=== PATIENT | female | born 1960 | race Caucasian/White ===

== ENCOUNTER 2017-12-20 22:47 | Emergency (ER) | payer OTHER ==
[~2017-12-20] VITALS: Ht 160 cm; Wt 59.0 kg
[~2017-12-20 22:47] MED LIST: ALBIPROI INH; ALBU.083IS; ALBU.083IS IH; ALBU3IS INH; ALBU90OI; ALBU90OI INH; ALBU90OI6 INH; ALBUIS; ALBUIS IH; AMOCLA500; ASPI81CH PO; ATOR10 PO; AZIT250 PO; BENZ100A PO; BUDE32NIS; CETI10; DIPH50 PO; DOXY100 PO; FLUSAL2505; FLUSAL2505 IH; FLUSAL5005 IH; FLUSAL5005 INH; GUAI600T33 PO; HYDACE5; HYDACE5 PO; HYDGUAL120 PO; IBUP200 PO; IBUP800 PO; IPRAIS; LEVFLO500 PO; LEVO750 PO; LORA10ER; Lisinopril2.5 MG PO; METF500 PO; METO25 PO; MONT4 PO; MULVITMIND PO; NICO14TP TOP; NICO21TP TD; NICO21TP TOP; OTC ALLERGY MED; OXYACE5T PO; OXYB5; OXYB5 PO; Omeprazole20 M1 PO; PRED10 PO; PRED20; PRED20 PO; PROM25 PO; Prednisone20 MG PO; Protonix40 MG PO; ROFL500T PO; SULTRIDS PO; SYMBICORT INH; THEO300ERA; TIOT18; TIOT18 IH; TIOT18 INH; TOLT2ER PO; TOLT4; TOLT4 PO; Zithromax250 MG PO; [UNRECOGNIZED DRUG - OTHER] PO
[2017-12-20 23:38] LABS: BASOPHILS ABSOLUTE AUTO 0.04 K/mm3 (0.00-0.23); BASOPHILS PERCENT AUTO 0 % (0-2); EOSINOPHILS ABSOLUTE AUTO 0.22 K/mm3 (0.00-0.68); EOSINOPHILS PERCENT AUTO 2 % (0-6); Hematocrit 36.1 % (33.0-51.0); Hemoglobin 11.9 g/dL (11.5-16.0); IMMATURE GRAN ABSOLUTE AUTO 0.06 K/mm3 (0.00-0.10); IMMATURE GRAN PERCENT AUTO 0 % (0-1); LYMPHOCYTES PERCENT AUTO 13 % (21-46); MONOCYTES ABSOLUTE AUTO 0.88 K/mm3 (0.16-1.47); MONOCYTES PERCENT AUTO 6 % (4-13); Mean Corpuscular HGB 28.6 pg (26.0-34.0); Mean Corpuscular Volume 87 fL (80-100); Mean Platelet Volume 10.7 fL (9.1-12.4); NEUTROPHILS ABSOLUTE AUTO 11.94 K/mm3 (1.96-9.15); NEUTROPHILS PERCENT AUTO 79 % (41-73); Platelet Count 234 K/mm3 (150-400); RDW Coefficient Variation 14.1 % (11.7-14.2); Red Blood Cell Count 4.16 M/mm3 (3.80-5.20); White Blood Cell Count 15.14 K/mm3 (4.00-11.30)
[2017-12-20 23:53] LABS: Alanine Aminotransfer (ALT/SGP 19 U/L (12-78); Albumin, Blood 3.1 g/dL (3.4-5.0); Albumin/Globulin Ratio 0.8 (0.8-1.8); Alk Phos 80 U/L (50-136); Anion Gap 10 mmol/L (6-16); Aspartate Aminotrans (AST/SGOT 15 U/L (12-37); Bilirubin, Total 0.3 mg/dL (0.1-1.0); Blood Urea Nitrogen 12 mg/dL (8-24); Bun/Creatinine Ratio 15.9 (12.0-20.0); CO2, Blood 20 mmol/L (21-32); Calcium, Blood 8.1 mg/dL (8.5-10.1); Chloride, Blood 107 mmol/L (98-108); Creatinine, Blood 0.75 mg/dL (0.40-1.00); Globulin, Blood 3.7 g/dL (2.2-4.0); Glomerular Filtration Rate >60 (60-); Glucose, Blood 151 mg/dL (70-99); Potassium, Blood 3.4 mmol/L (3.5-5.5); Sodium, Blood 137 mmol/L (136-145); Total Protein, Blood 6.8 g/dL (6.4-8.2); Troponin I <0.015 ng/mL (0.000-0.040)
[2017-12-20 23:56] LABS: Influenza A Negative (NEGATIVE); Influenza B Negative (NEGATIVE)
[2017-12-21 00:45] LABS: PCO2 Arterial 35.6 mmHg (35-45); PO2 Arterial 71.7 mmHg (80-100); pH Blood Arterial 7.44 (7.35-7.45)
== END 2017-12-21 02:47 | disposition home or self-care (01) ==
LOC: ER 22:47
PROVIDERS: Emergency Medicine
DX: R07.9 Chest pain, unspecified (principal); Z88.8 Allergy status to other drugs, medicaments and biological substances; Z91.018 Allergy to other foods; Z79.899 Other long term (current) drug therapy; Z79.82 Long term (current) use of aspirin; Z79.84 Long term (current) use of oral hypoglycemic drugs; J44.9 Chronic obstructive pulmonary disease, unspecified; E11.9 Type 2 diabetes mellitus without complications; F17.210 Nicotine dependence, cigarettes, uncomplicated
CPT/HCPCS: 36600; 71046; 80053; 82803; 83880; 84484; 85025; 87804; 93005; 93010; 99284

== ENCOUNTER → 2018-02-03 | Outpatient (CLI) | payer OTHER ==
[2018-02-03 12:55] LABS: BASOPHILS ABSOLUTE AUTO 0.08 K/mm3 (0.00-0.23); BASOPHILS PERCENT AUTO 1 % (0-2); EOSINOPHILS PERCENT AUTO 4 % (0-6); Hematocrit 43.5 % (33.0-51.0); Hemoglobin 14.7 g/dL (11.5-16.0); IMMATURE GRAN ABSOLUTE AUTO 0.01 K/mm3 (0.00-0.10); IMMATURE GRAN PERCENT AUTO 0 % (0-1); LYMPHOCYTES ABSOLUTE AUTO 1.95 K/mm3 (0.84-5.20); LYMPHOCYTES PERCENT AUTO 23 % (21-46); MONOCYTES ABSOLUTE AUTO 0.47 K/mm3 (0.16-1.47); MONOCYTES PERCENT AUTO 6 % (4-13); Mean Corpuscular HGB 29.1 pg (26.0-34.0); Mean Corpuscular HGB Conc 33.8 g/dL (31.5-36.5); Mean Corpuscular Volume 86 fL (80-100); Mean Platelet Volume 10.4 fL (9.1-12.4); NEUTROPHILS PERCENT AUTO 67 % (41-73); Platelet Count 287 K/mm3 (150-400); Red Blood Cell Count 5.06 M/mm3 (3.80-5.20); White Blood Cell Count 8.61 K/mm3 (4.00-11.30)
[2018-02-03 13:09] LABS: Alanine Aminotransfer (ALT/SGP 22 U/L (12-78); Albumin, Blood 3.9 g/dL (3.4-5.0); Albumin/Globulin Ratio 1.1 (0.8-1.8); Alk Phos 79 U/L (40-126); Anion Gap 9 mmol/L (6-16); Aspartate Aminotrans (AST/SGOT 16 U/L (12-37); Bilirubin, Total 0.3 mg/dL (0.1-1.0); Blood Urea Nitrogen 9 mg/dL (8-24); Bun/Creatinine Ratio 11.5 (12.0-20.0); CO2, Blood 28 mmol/L (21-32); Chloride, Blood 105 mmol/L (98-108); Creatinine, Blood 0.78 mg/dL (0.40-1.00); Globulin, Blood 3.6 g/dL (2.2-4.0); Glomerular Filtration Rate >60 (60-); Glucose, Blood 101 mg/dL (70-99); Potassium, Blood 4.5 mmol/L (3.5-5.5); Sodium, Blood 142 mmol/L (136-145); Total Protein, Blood 7.5 g/dL (6.4-8.2)
== END ==
LOC: LAB EV 12:52 → LAB SHORT 12:52
PROVIDERS: Physician Assistant
DX: R06.00 Dyspnea, unspecified (principal)
CPT/HCPCS: 80053; 83880; 85025

== ENCOUNTER 2018-02-26 22:18 | Inpatient (IN) | payer OTHER ==
[~2018-02-26] VITALS: Ht 162.6 cm; Wt 62.8 kg
[2018-02-26 22:40] LABS: BASOPHILS ABSOLUTE AUTO 0.08 K/mm3 (0.00-0.23); BASOPHILS PERCENT AUTO 1 % (0-2); EOSINOPHILS ABSOLUTE AUTO 0.91 K/mm3 (0.00-0.68); EOSINOPHILS PERCENT AUTO 8 % (0-6); Hemoglobin 14.6 g/dL (11.5-16.0); IMMATURE GRAN ABSOLUTE AUTO 0.02 K/mm3 (0.00-0.10); IMMATURE GRAN PERCENT AUTO 0 % (0-1); LYMPHOCYTES ABSOLUTE AUTO 3.73 K/mm3 (0.84-5.20); LYMPHOCYTES PERCENT AUTO 34 % (21-46); MONOCYTES ABSOLUTE AUTO 0.78 K/mm3 (0.16-1.47); MONOCYTES PERCENT AUTO 7 % (4-13); Mean Corpuscular HGB 28.2 pg (26.0-34.0); Mean Corpuscular HGB Conc 32.4 g/dL (31.5-36.5); Mean Corpuscular Volume 87 fL (80-100); Mean Platelet Volume 10.8 fL (9.1-12.4); NEUTROPHILS ABSOLUTE AUTO 5.57 K/mm3 (1.96-9.15); NEUTROPHILS PERCENT AUTO 50 % (41-73); Platelet Count 288 K/mm3 (150-400); RDW Coefficient Variation 14.4 % (11.7-14.2); Red Blood Cell Count 5.17 M/mm3 (3.80-5.20); White Blood Cell Count 11.09 K/mm3 (4.00-11.30)
[2018-02-26] MEDS ORDERED: MONT10T PO (22:43)
[2018-02-26 22:54] LABS: Alanine Aminotransfer (ALT/SGP 21 U/L (12-78); Albumin, Blood 3.7 g/dL (3.4-5.0); Albumin/Globulin Ratio 1.1 (0.8-1.8); Alk Phos 77 U/L (50-136); Anion Gap 8 mmol/L (6-16); Aspartate Aminotrans (AST/SGOT 14 U/L (12-37); Bilirubin, Total 0.2 mg/dL (0.1-1.0); Blood Urea Nitrogen 11 mg/dL (8-24); Bun/Creatinine Ratio 16.8 (12.0-20.0); CO2, Blood 27 mmol/L (21-32); Calcium, Blood 8.7 mg/dL (8.5-10.1); Chloride, Blood 108 mmol/L (98-108); Creatinine, Blood 0.65 mg/dL (0.40-1.00); Globulin, Blood 3.4 g/dL (2.2-4.0); Glomerular Filtration Rate >60 (60-); Glucose, Blood 104 mg/dL (70-99); Sodium, Blood 143 mmol/L (136-145); Total Protein, Blood 7.1 g/dL (6.4-8.2); Troponin I <0.015 ng/mL (0.000-0.040)
[2018-02-27 04:51] LABS: Hematocrit 41.9 % (33.0-51.0); Hemoglobin 13.4 g/dL (11.5-16.0); Mean Corpuscular HGB 28.2 pg (26.0-34.0); Mean Corpuscular Volume 88 fL (80-100); Mean Platelet Volume 10.6 fL (9.1-12.4); Platelet Count 258 K/mm3 (150-400); RDW Coefficient Variation 14.4 % (11.7-14.2); RDW Standard Deviation 46.7 fL (35.1-46.3); Red Blood Cell Count 4.76 M/mm3 (3.80-5.20); White Blood Cell Count 9.49 K/mm3 (4.00-11.30)
[2018-02-27 05:15] LABS: Alanine Aminotransfer (ALT/SGP 19 U/L (12-78); Albumin, Blood 3.5 g/dL (3.4-5.0); Albumin/Globulin Ratio 1.1 (0.8-1.8); Alk Phos 74 U/L (50-136); Anion Gap 7 mmol/L (6-16); Aspartate Aminotrans (AST/SGOT 14 U/L (12-37); Bilirubin, Total 0.2 mg/dL (0.1-1.0); Blood Urea Nitrogen 11 mg/dL (8-24); CO2, Blood 27 mmol/L (21-32); Calcium, Blood 8.4 mg/dL (8.5-10.1); Chloride, Blood 110 mmol/L (98-108); Creatinine, Blood 0.61 mg/dL (0.40-1.00); Globulin, Blood 3.2 g/dL (2.2-4.0); Glomerular Filtration Rate >60 (60-); Glucose, Blood 147 mg/dL (70-99); Potassium, Blood 3.9 mmol/L (3.5-5.5); Sodium, Blood 144 mmol/L (136-145); Total Protein, Blood 6.7 g/dL (6.4-8.2)
[2018-03-01] MEDS ORDERED: ROBITUSSIN COU237 ML PO (10:58)
[2018-03-01] MEDS ORDERED: IBU600 MG PO (10:59)
[2018-03-01] MEDS ORDERED: Nicoderm Cq1 EAC1 TD (11:00)
[2018-03-01] MEDS ORDERED: AZIT250 PO (11:01)
[2018-03-01] MEDS ORDERED: PRED10 PO (11:03)
== END 2018-03-01 12:24 | disposition home or self-care (01) | DRG 189 ==
LOC: ER 22:18 → MEDS 02-27 02:19 → ENPENDDIS 03-01 10:13 → MEDS 03-01 12:24
PROVIDERS: Emergency Medicine; Internal Medicine
DX: J96.21 Acute and chronic respiratory failure with hypoxia (principal); J44.1 Chronic obstructive pulmonary disease with (acute) exacerbation; Z99.81 Dependence on supplemental oxygen; Z79.84 Long term (current) use of oral hypoglycemic drugs; E11.9 Type 2 diabetes mellitus without complications; F17.210 Nicotine dependence, cigarettes, uncomplicated; I25.2 Old myocardial infarction; E78.5 Hyperlipidemia, unspecified; G47.33 Obstructive sleep apnea (adult) (pediatric); Z79.82 Long term (current) use of aspirin
CPT/HCPCS: 36415; 71046; 80053; 82947; 83880; 84484; 85025; 85027; 93005; 93010; 94640; 94644; 94762; 96365; 96366; 96375; 99285; J0456; J1650; J2920; J2930; J3010; J3475; J7030; J7050

== ENCOUNTER → 2018-04-02 | Outpatient (CLI) | payer OTHER ==
[~2018-04-02] MED LIST changes: +IBU600 MG PO; +MONT10T PO; +Nicoderm Cq1 EAC1 TD; +ROBITUSSIN COU237 ML PO
[2018-04-02 14:42] LABS: BASOPHILS ABSOLUTE AUTO 0.06 K/mm3 (0.00-0.23); BASOPHILS PERCENT AUTO 1 % (0-2); EOSINOPHILS ABSOLUTE AUTO 0.39 K/mm3 (0.00-0.68); EOSINOPHILS PERCENT AUTO 5 % (0-6); Hemoglobin 13.7 g/dL (11.5-16.0); IMMATURE GRAN ABSOLUTE AUTO 0.03 K/mm3 (0.00-0.10); IMMATURE GRAN PERCENT AUTO 0 % (0-1); LYMPHOCYTES ABSOLUTE AUTO 1.83 K/mm3 (0.84-5.20); LYMPHOCYTES PERCENT AUTO 21 % (21-46); MONOCYTES ABSOLUTE AUTO 0.57 K/mm3 (0.16-1.47); MONOCYTES PERCENT AUTO 7 % (4-13); Mean Corpuscular HGB 28.8 pg (26.0-34.0); Mean Corpuscular HGB Conc 33.4 g/dL (31.5-36.5); Mean Corpuscular Volume 86 fL (80-100); Mean Platelet Volume 10.1 fL (9.1-12.4); NEUTROPHILS ABSOLUTE AUTO 5.88 K/mm3 (1.96-9.15); NEUTROPHILS PERCENT AUTO 67 % (41-73); Platelet Count 300 K/mm3 (150-400); RDW Coefficient Variation 14.7 % (11.7-14.2); Red Blood Cell Count 4.76 M/mm3 (3.80-5.20); White Blood Cell Count 8.76 K/mm3 (4.00-11.30)
[2018-04-02 14:53] LABS: Alanine Aminotransfer (ALT/SGP 20 U/L (12-78); Albumin, Blood 3.8 g/dL (3.4-5.0); Albumin/Globulin Ratio 1.2 (0.8-1.8); Alk Phos 84 U/L (40-126); Anion Gap 7 mmol/L (6-16); Aspartate Aminotrans (AST/SGOT 14 U/L (12-37); Bilirubin, Total 0.3 mg/dL (0.1-1.0); Blood Urea Nitrogen 7 mg/dL (8-24); Bun/Creatinine Ratio 9.9 (12.0-20.0); CO2, Blood 27 mmol/L (21-32); CPK Creatine Kinase 72 U/L (26-192); Chloride, Blood 105 mmol/L (98-108); Creatinine, Blood 0.71 mg/dL (0.40-1.00); Globulin, Blood 3.3 g/dL (2.2-4.0); Glomerular Filtration Rate >60 (60-); Glucose, Blood 89 mg/dL (70-99); Potassium, Blood 4.2 mmol/L (3.5-5.5); Sodium, Blood 139 mmol/L (136-145); Total Protein, Blood 7.1 g/dL (6.4-8.2)
[2018-04-02 14:54] LABS: Troponin I <0.017 ng/mL (0.000-0.040)
== END | disposition home or self-care (01) ==
LOC: LAB SHORT 14:34 → LAB EV 14:34
PROVIDERS: General Practice
DX: R06.02 Shortness of breath (principal)
CPT/HCPCS: 80053; 82550; 83880; 84484; 85025

== ENCOUNTER → 2019-02-08 | Outpatient (CLI) | payer OTHER ==
[~2019-02-08] MED LIST changes: +ATOR40TA PO; +Albuterol2.5 MG/0.5 INH; +CLOP75 PO; +Prednisone50 MG PO
[2019-02-08 21:07] LABS: Alanine Aminotransfer (ALT/SGP 26 U/L (12-78); Albumin, Blood 3.6 g/dL (3.4-5.0); Albumin/Globulin Ratio 1.2 (0.8-1.8); Alk Phos 82 U/L (50-136); Anion Gap 7 mmol/L (6-16); Aspartate Aminotrans (AST/SGOT 15 U/L (12-37); Bilirubin, Total 0.2 mg/dL (0.1-1.0); Blood Urea Nitrogen 10 mg/dL (8-24); Bun/Creatinine Ratio 13.9 (12.0-20.0); CO2, Blood 27 mmol/L (21-32); Calcium, Blood 9.1 mg/dL (8.5-10.1); Chloride, Blood 106 mmol/L (98-108); Creatinine, Blood 0.72 mg/dL (0.40-1.00); Globulin, Blood 2.9 g/dL (2.2-4.0); Glomerular Filtration Rate >60 (60-); Glucose, Blood 102 mg/dL (70-99); Potassium, Blood 3.8 mmol/L (3.5-5.5); Sodium, Blood 140 mmol/L (136-145); Total Protein, Blood 6.5 g/dL (6.4-8.2)
== END | disposition home or self-care (01) ==
LOC: LAB 19:56 → LAB SHORT 19:56
PROVIDERS: Physician Assistant
DX: E11.9 Type 2 diabetes mellitus without complications (principal); R25.2 Cramp and spasm
CPT/HCPCS: 80053; 83036

== ENCOUNTER 2020-10-05 09:31 | Inpatient (IN) | payer OTHER ==
[~2020-10-05] VITALS: Ht 157.5 cm; Wt 56.0 kg
[~2020-10-05 09:31] MED LIST changes: -ALBU.083IS IH; +ALBU2.5V5 NEB; -ASPI81CH PO; -ATOR10 PO; +ATOR80 PO; +Aspirin EC81 MG PO
[2020-10-05 10:01] LABS: BASOPHILS ABSOLUTE AUTO 0.05 K/mm3 (0.00-0.23); BASOPHILS PERCENT AUTO 0 % (0-2); EOSINOPHILS ABSOLUTE AUTO 0.04 K/mm3 (0.00-0.68); EOSINOPHILS PERCENT AUTO 0 % (0-6); Hematocrit 47.8 % (33.0-51.0); Hemoglobin 15.2 g/dL (11.5-16.0); IMMATURE GRAN ABSOLUTE AUTO 0.03 K/mm3 (0.00-0.10); IMMATURE GRAN PERCENT AUTO 0 % (0-1); LYMPHOCYTES ABSOLUTE AUTO 2.69 K/mm3 (0.84-5.20); LYMPHOCYTES PERCENT AUTO 21 % (21-46); MONOCYTES PERCENT AUTO 6 % (4-13); Mean Corpuscular HGB 28.7 pg (26.0-34.0); Mean Corpuscular HGB Conc 31.8 g/dL (31.5-36.5); Mean Corpuscular Volume 90 fL (80-100); NEUTROPHILS ABSOLUTE AUTO 9.24 K/mm3 (1.96-9.15); NEUTROPHILS PERCENT AUTO 73 % (41-73); Platelet Count 252 K/mm3 (150-400); RDW Coefficient Variation 14.6 % (11.7-14.2); RDW Standard Deviation 48.4 fL (35.1-46.3); Red Blood Cell Count 5.29 M/mm3 (3.80-5.20); White Blood Cell Count 12.75 K/mm3 (4.00-11.30)
[2020-10-05 10:09] LABS: Base Excess Venous 2.3 mmol/L; PCO2 Venous 57.3 mmHg (38-42); PO2 Venous 79.5 mmHg (38-42); pH Blood Venous 7.31 (7.34-7.37)
[2020-10-05 10:18] LABS: Alanine Aminotransfer (ALT/SGP 25 U/L (12-78); Albumin, Blood 3.6 g/dL (3.4-5.0); Alk Phos 101 U/L (50-136); Anion Gap 6 mmol/L (6-16); Aspartate Aminotrans (AST/SGOT 11 U/L (12-37); Bilirubin, Total 0.3 mg/dL (0.1-1.0); Blood Urea Nitrogen 9 mg/dL (8-24); Bun/Creatinine Ratio 16.5 (12.0-20.0); CO2, Blood 27 mmol/L (21-32); Calcium, Blood 8.6 mg/dL (8.5-10.1); Chloride, Blood 109 mmol/L (98-108); Creatinine, Blood 0.55 mg/dL (0.40-1.00); Globulin, Blood 3.7 g/dL (2.2-4.0); Glomerular Filtration Rate >60 (60-); Glucose, Blood 123 mg/dL (70-99); Potassium, Blood 3.9 mmol/L (3.5-5.5); Sodium, Blood 142 mmol/L (136-145); Total Protein, Blood 7.3 g/dL (6.4-8.2); Troponin I <0.015 ng/mL (0.000-0.040)
[2020-10-05] MEDS ORDERED: BUDESONIDE-FO10.2 G2 INH (11:45)
[2020-10-05] MEDS ORDERED: TIOT18 INH (11:46)
[2020-10-05] MEDS ORDERED: VITAMIN D31000 UNI1 PO (11:48)
--- NOTE | 2020-10-05 13:25 | NUR ---
ASSUMED CARE: RECIEVED PATIENT FROM ED IN RESPIRATORY DISTRESS ON BIPAP. TACHYPNIC WITH ACCESSORY MUSCLE USE. TACHYCARDIC, BUT BP'S STABLE. MOVED PATIENT OVER TO OUR BED AND REMOVED BIPAP TO COMPLETE ADMISSION. PATIENT WAS STILL WORKING HARD TO BREATH, SO 4L NC PLACED. BY COMPLETION OF ADMISSION QUESTIONS, PT'S WORK OF BREATHING HAS REDUCED AND NC REDUCED TO 2L. NO S/S RESPIRATORY DISTRESS AT THIS TIME. BIPAP AT BEDSIDE, BUT NOT NEEDED AT THIS TIME. LUNG SOUNDS ARE COARSE/CONGESTED/WHEEZY, RIGHT LOWER LOBE CRACKLES ARE HEARD.
[2020-10-05 17:22] LABS: Influenza A Negative (NEGATIVE)
[2020-10-05 17:23] LABS: Influenza B Negative (NEGATIVE)
--- NOTE | 2020-10-05 17:30 | NUR ---
RESPIRATORY STATUS: OXYGEN REMOVED FROM PATIENT AND HER O2 SATURATION REMAINS ABOVE 92%. WILL CONTINUE TO MONITOR
--- NOTE | 2020-10-05 19:15 | NUR ---
SHIFT SUMMARY: PATIENT REMAINS OFF OF SUPLIMENTAL OXYGEN WITHOUT DESATURATION AT THIS TIME. VSS THROUGHOUT SHIFT, UP WITH 1 ASSIST TO BEDSIDE COMMODE. PATIENT IS CHRONICALLY INCONTINENT AND WEARS PULL UPS AT HOME. REPORT GIVEN AND ALL QUESTIONS ANSWERED
[2020-10-05 19:28] LABS: Source, Urine Clean Catch
[2020-10-05 19:43] LABS: Appearance, Urine Clear (Clear); Bilirubin, Urine Neg (Neg); Blood, Urine Neg (Neg); Color, Urine Yellow (P-Yellow); Glucose Qualitative, Urine 4+ (Neg); Ketones, Urine 1+ (Neg); Leukocyte Esterase, Urine Neg (Neg); Nitrite, Urine Neg (Neg); Protein, Urine Neg (Neg); Specific Gravity, Urine 1.025 (1.003-1.022); Urobilinogen, Urine NORM (Normal)
[2020-10-05 19:54] LABS: U Amphetamine Screen Not Detected; U Barbituate Screen Not Detected; U Methamphetamine Screen Not Detected
[2020-10-05 19:55] LABS: U Benzodiazapine Screen Not Detected; U Buprenorphine Screen Not Detected; U Cannabinoids Screen Not Detected; U Cocaine Screen Not Detected; U Methadone Screen Not Detected; U Opiates Screen Not Detected; U Oxycodone Screen Not Detected; U Phencyclidine Screen Not Detected; U Propoxyphene Screen Not Detected
--- NOTE | 2020-10-05 22:53 | NUR ---
UPDATE PATIENT PROVIDED WITH A HEATING PAD FOR PAIN RELIEF IN RIGHT SHOULDER. PATIENT STATES IT IS HELPING HER PAIN. DENIES ANY NEED FOR FURTHER PAIN MEDICATION AT THIS TIME.
[2020-10-06 04:09] LABS: BASOPHILS ABSOLUTE AUTO 0.01 K/mm3 (0.00-0.23); BASOPHILS PERCENT AUTO 0 % (0-2); EOSINOPHILS PERCENT AUTO 0 % (0-6); Hematocrit 42.5 % (33.0-51.0); Hemoglobin 13.4 g/dL (11.5-16.0); IMMATURE GRAN ABSOLUTE AUTO 0.04 K/mm3 (0.00-0.10); IMMATURE GRAN PERCENT AUTO 0 % (0-1); LYMPHOCYTES ABSOLUTE AUTO 0.62 K/mm3 (0.84-5.20); LYMPHOCYTES PERCENT AUTO 6 % (21-46); MONOCYTES ABSOLUTE AUTO 0.05 K/mm3 (0.16-1.47); MONOCYTES PERCENT AUTO 1 % (4-13); Mean Corpuscular HGB Conc 31.5 g/dL (31.5-36.5); Mean Corpuscular Volume 89 fL (80-100); Mean Platelet Volume 11.9 fL (9.1-12.4); NEUTROPHILS ABSOLUTE AUTO 9.84 K/mm3 (1.96-9.15); NEUTROPHILS PERCENT AUTO 93 % (41-73); Platelet Count 233 K/mm3 (150-400); RDW Coefficient Variation 14.2 % (11.7-14.2); RDW Standard Deviation 46.2 fL (35.1-46.3); Red Blood Cell Count 4.79 M/mm3 (3.80-5.20); White Blood Cell Count 10.56 K/mm3 (4.00-11.30)
[2020-10-06 04:31] LABS: Alanine Aminotransfer (ALT/SGP 22 U/L (12-78); Albumin, Blood 3.1 g/dL (3.4-5.0); Albumin/Globulin Ratio 0.9 (0.8-1.8); Alk Phos 90 U/L (50-136); Anion Gap 8 mmol/L (6-16); Aspartate Aminotrans (AST/SGOT 10 U/L (12-37); Bilirubin, Total 0.4 mg/dL (0.1-1.0); Blood Urea Nitrogen 13 mg/dL (8-24); Bun/Creatinine Ratio 28.1 (12.0-20.0); CO2, Blood 26 mmol/L (21-32); Calcium, Blood 8.6 mg/dL (8.5-10.1); Chloride, Blood 107 mmol/L (98-108); Creatinine, Blood 0.46 mg/dL (0.40-1.00); Globulin, Blood 3.4 g/dL (2.2-4.0); Glomerular Filtration Rate >60 (60-); Glucose, Blood 171 mg/dL (70-99); Potassium, Blood 3.9 mmol/L (3.5-5.5); Sodium, Blood 141 mmol/L (136-145); Total Protein, Blood 6.5 g/dL (6.4-8.2)
--- NOTE | 2020-10-06 06:24 | NUR ---
SHIFT SUMMARY PATIENT PLEASENT AND COOPERATIVE THROUGHOUT THE NIGHT. PATIENT MEDICATED FOR SHOULDER PAIN AND WHOLE BODY ACHES PER EMAR THROUGHOUT THE NIGHT. PATIENT ALSO USED A HEATING PAD ON HER SHULDER WHICH SHE REPORTED HELPED EASE HER SHOULDER PAIN. PATIENT STATED SHE WAS GOING TO USE THE HEATING AND TYLENOL FOR PAIN RELIEF AT THIS TIME AND THAT SHE DID NOT WANT TO TAKE ANYTHING EXTRA UNLESS SHE REALLY NEEDED IT. PATIENT APPEARED TO NAP ON AND OFF THROUGHOUT THE NIGHT. PATIENT CURRENTLY SITTING UP IN BED WATCHING TV, DENIES ANY NEEDS. WILL CONTINUE CURRENT PLAN OF CARE.
--- NOTE | 2020-10-06 07:00 | NUR ---
ASSUMED CARE PT RESTING COMFORTABLY IN BED WITH 1L NC ON FOR PERIODS OF SLEEP APNEA OVERNIGHT. NO S/S DISTRESS AT THIS TIME. WILL CONTINUE TO MONITOR CLOSELY
--- NOTE | 2020-10-06 18:53 | NUR ---
SHIFT SUMMARY: VSS, NO FEVER OR PAIN THIS SHIFT. WEANED OFF O2 TODAY, 92-94% ON RA. STAND BY ASSIST TO BEDSIDE COMMODE. ORDERS FOR PCU TRANSFER BUT NO BEDS AVAILABLE AT THIS TIME
--- NOTE | 2020-10-07 05:23 | NUR ---
SHIFT SUMMARY PATIENT HAS COMPLAINED OF RIGHT SHOULDER PAIN A COUPLE OF TIMES TONIGHT, WELL MANAGED WITH PRN IBUPROFEN AND HEATING PACK. NO ACUTE CHANGES OVERNIGHT. ASSESSMENT IS CHARTED. VSS. WILL CONTINUE TO MONITOR.
--- NOTE | 2020-10-07 07:13 | NUR ---
ASSUMED CARE PATIENT SLEEPING, VSS, NO FEVERS OR ECTOPE OVERNIGHT
[2020-10-07] MEDS ORDERED: METF500 PO (13:51)
[2020-10-07] MEDS ORDERED: NICO21TP TOP (14:09)
[2020-10-07] MEDS ORDERED: NICOTINE GUM2 M1 PO (14:10)
--- NOTE | 2020-10-07 15:00 | NUR ---
SHIFT SUMMARY: DISCHARD INSTUCTIONS DISCUSSED AND ALL QUESTIONS ANSWERED. SMOKING CESSATION EDUCATION PAMPHLET, RX FOR NICOTINE PATCHES AND GUM GIVEN. RX FAXED TO [facility]. PT'S BRASS PLATER CALLED FOR APPOINTMENT TO BE SEEN WITHIN 72 HOURS, BUT ONLY ABLE TO LEAVE A MESSAGE. PT TO FOLLOW UP FOR APPOINTMENT. VSS DURING SHIFT AND BLOOD SUGARS STABLE FOR ENTIRE SHIFT, NO COVERAGE NEEDED. IV'S REMOVED WITH NO BLEEDING ISSUES
--- NOTE | 2020-10-07 17:46 | NUR ---
Per admit trigger, I was tasked to meet with Hemalatha and offer information on advanced care planning. She made it very clear that she was not interested.
== END 2020-10-07 15:25 | disposition home or self-care (01) | DRG 189 ==
LOC: ER 09:31 → ERHOLD 12:16 → ICUW 13:25
PROVIDERS: Emergency Medicine; Nurse Practitioner Acute Care; ADMIT Internal Medicine
PROC: 3E0234Z Introduction of Serum, Toxoid and Vaccine into Muscle, Percutaneous Approach (ICD-10-PCS; principal; 2020-10-05)
DX: J96.21 Acute and chronic respiratory failure with hypoxia (principal); R65.10 Systemic inflammatory response syndrome (SIRS) of non-infectious origin without acute organ dysfunction; J96.11 Chronic respiratory failure with hypoxia; G47.33 Obstructive sleep apnea (adult) (pediatric); Z23 Encounter for immunization; E11.9 Type 2 diabetes mellitus without complications; I25.10 Atherosclerotic heart disease of native coronary artery without angina pectoris; I10 Essential (primary) hypertension; E78.5 Hyperlipidemia, unspecified; F17.210 Nicotine dependence, cigarettes, uncomplicated; I25.2 Old myocardial infarction; Z79.02 Long term (current) use of antithrombotics/antiplatelets; Z79.82 Long term (current) use of aspirin; Z79.84 Long term (current) use of oral hypoglycemic drugs; Z79.52 Long term (current) use of systemic steroids
CPT/HCPCS: 36415; 71045; 80053; 81003; 82803; 82947; 83605; 83880; 84484; 85025; 87070; 87205; 87804; 93005; 93010; 94640; 94644; 94660; 96365; 99285-25; A9270; G0008; J0696; J1650; J2765; J2930; J7120; J7512; Q2038

== ENCOUNTER 2020-10-15 20:12 | Inpatient (IN) | payer OTHER ==
[~2020-10-15] VITALS: Ht 157.5 cm; Wt 61.4 kg
[~2020-10-15 20:12] MED LIST changes: +BUDESONIDE-FO10.2 G2 INH; +NICOTINE GUM2 M1 PO; +VITAMIN D31000 UNI1 PO
[2020-10-15 20:43] LABS: BASOPHILS ABSOLUTE AUTO 0.03 K/mm3 (0.00-0.23); BASOPHILS PERCENT AUTO 0 % (0-2); EOSINOPHILS ABSOLUTE AUTO 0.06 K/mm3 (0.00-0.68); EOSINOPHILS PERCENT AUTO 1 % (0-6); Hematocrit 45.5 % (33.0-51.0); Hemoglobin 14.8 g/dL (11.5-16.0); IMMATURE GRAN ABSOLUTE AUTO 0.04 K/mm3 (0.00-0.10); IMMATURE GRAN PERCENT AUTO 0 % (0-1); LYMPHOCYTES ABSOLUTE AUTO 3.27 K/mm3 (0.84-5.20); LYMPHOCYTES PERCENT AUTO 30 % (21-46); MONOCYTES ABSOLUTE AUTO 1.01 K/mm3 (0.16-1.47); MONOCYTES PERCENT AUTO 9 % (4-13); Mean Corpuscular HGB 28.7 pg (26.0-34.0); Mean Corpuscular HGB Conc 32.5 g/dL (31.5-36.5); Mean Corpuscular Volume 88 fL (80-100); Mean Platelet Volume 10.8 fL (9.1-12.4); NEUTROPHILS ABSOLUTE AUTO 6.36 K/mm3 (1.96-9.15); NEUTROPHILS PERCENT AUTO 59 % (41-73); Platelet Count 278 K/mm3 (150-400); RDW Coefficient Variation 14.1 % (11.7-14.2); RDW Standard Deviation 45.1 fL (35.1-46.3); Red Blood Cell Count 5.15 M/mm3 (3.80-5.20); White Blood Cell Count 10.77 K/mm3 (4.00-11.30)
[2020-10-15 21:02] LABS: Alanine Aminotransfer (ALT/SGP 34 U/L (12-78); Albumin, Blood 3.5 g/dL (3.4-5.0); Albumin/Globulin Ratio 1.1 (0.8-1.8); Alk Phos 94 U/L (50-136); Anion Gap 5 mmol/L (6-16); Aspartate Aminotrans (AST/SGOT 11 U/L (12-37); Bilirubin, Total 0.2 mg/dL (0.1-1.0); Blood Urea Nitrogen 8 mg/dL (8-24); Bun/Creatinine Ratio 12.3 (12.0-20.0); CO2, Blood 29 mmol/L (21-32); Calcium, Blood 8.6 mg/dL (8.5-10.1); Chloride, Blood 108 mmol/L (98-108); Creatinine, Blood 0.65 mg/dL (0.40-1.00); Globulin, Blood 3.3 g/dL (2.2-4.0); Glomerular Filtration Rate >60 (60-); Glucose, Blood 114 mg/dL (70-99); Potassium, Blood 3.9 mmol/L (3.5-5.5); Sodium, Blood 142 mmol/L (136-145); Total Protein, Blood 6.8 g/dL (6.4-8.2); Troponin I <0.015 ng/mL (0.000-0.040)
[2020-10-15 21:06] LABS: Base Excess Venous 2.9 mmol/L; Bicarbonate Venous 25.7 mmol/L (24.0-30.0); PCO2 Venous 50.4 mmHg (38-42); pH Blood Venous 7.36 (7.34-7.37)
[2020-10-15 21:23] LABS: Influenza A, PCR Negative (NEGATIVE); Influenza B, PCR Negative (NEGATIVE); Resp Syncytial Virus, PCR Negative (NEGATIVE); SARS-Cov-2 (COVID-19) PCR, MMC Negative (NEGATIVE)
[2020-10-16 04:59] LABS: BASOPHILS ABSOLUTE AUTO 0.02 K/mm3 (0.00-0.23); BASOPHILS PERCENT AUTO 0 % (0-2); EOSINOPHILS PERCENT AUTO 0 % (0-6); Hematocrit 41.2 % (33.0-51.0); Hemoglobin 13.2 g/dL (11.5-16.0); IMMATURE GRAN ABSOLUTE AUTO 0.08 K/mm3 (0.00-0.10); IMMATURE GRAN PERCENT AUTO 1 % (0-1); LYMPHOCYTES ABSOLUTE AUTO 0.49 K/mm3 (0.84-5.20); LYMPHOCYTES PERCENT AUTO 4 % (21-46); MONOCYTES ABSOLUTE AUTO 0.07 K/mm3 (0.16-1.47); MONOCYTES PERCENT AUTO 1 % (4-13); Mean Corpuscular HGB 28.7 pg (26.0-34.0); Mean Corpuscular Volume 90 fL (80-100); Mean Platelet Volume 11.4 fL (9.1-12.4); NEUTROPHILS ABSOLUTE AUTO 11.84 K/mm3 (1.96-9.15); NEUTROPHILS PERCENT AUTO 95 % (41-73); Platelet Count 248 K/mm3 (150-400); RDW Coefficient Variation 14.1 % (11.7-14.2)
[2020-10-16 05:39] LABS: Anion Gap 9 mmol/L (6-16); Blood Urea Nitrogen 11 mg/dL (8-24); Bun/Creatinine Ratio 22.9 (12.0-20.0); CO2, Blood 23 mmol/L (21-32); Calcium, Blood 8.3 mg/dL (8.5-10.1); Chloride, Blood 110 mmol/L (98-108); Creatinine, Blood 0.48 mg/dL (0.40-1.00); Glomerular Filtration Rate >60 (60-); Glucose, Blood 186 mg/dL (70-99); Potassium, Blood 3.8 mmol/L (3.5-5.5); Sodium, Blood 142 mmol/L (136-145)
[2020-10-17] MEDS ORDERED: PRED20 PO (12:32)
[2020-10-17] MEDS ORDERED: ALBU90OI INH (12:34)
== END 2020-10-17 15:07 | disposition home or self-care (01) | DRG 191 ==
LOC: ER 20:12 → PCU 22:35
PROVIDERS: Emergency Medicine; Nurse Practitioner Acute Care; ADMIT Internal Medicine
DX: J44.1 Chronic obstructive pulmonary disease with (acute) exacerbation (principal); J96.11 Chronic respiratory failure with hypoxia; G47.33 Obstructive sleep apnea (adult) (pediatric); E11.9 Type 2 diabetes mellitus without complications; Z20.822 Contact with and (suspected) exposure to COVID-19; I25.10 Atherosclerotic heart disease of native coronary artery without angina pectoris; T38.0X5A Adverse effect of glucocorticoids and synthetic analogues, initial encounter; I10 Essential (primary) hypertension; K21.9 Gastro-esophageal reflux disease without esophagitis; E78.5 Hyperlipidemia, unspecified; F17.210 Nicotine dependence, cigarettes, uncomplicated; I25.2 Old myocardial infarction; Z95.5 Presence of coronary angioplasty implant and graft; Z87.891 Personal history of nicotine dependence; Z79.82 Long term (current) use of aspirin; Z79.84 Long term (current) use of oral hypoglycemic drugs
CPT/HCPCS: 0241U; 36415; 71045; 80048; 80053; 82803; 82947; 83605; 83880; 84484; 85025; 87040; 93005; 93010; 94640; 94644; 94660; 94761; 94762; 96365; 96367; 96375; 99285-25; A9270; G0378; J0696; J1650; J2930; J3475; J7030

== ENCOUNTER 2021-03-30 21:26 | Inpatient (IN) | payer OTHER ==
[~2021-03-30] VITALS: Ht 157.5 cm; Wt 71.1 kg
[2021-03-30 21:51] LABS: BASOPHILS ABSOLUTE AUTO 0.05 K/mm3 (0.00-0.23); BASOPHILS PERCENT AUTO 1 % (0-2); EOSINOPHILS ABSOLUTE AUTO 0.19 K/mm3 (0.00-0.68); EOSINOPHILS PERCENT AUTO 2 % (0-6); Hematocrit 46.2 % (33.0-51.0); Hemoglobin 14.8 g/dL (11.5-16.0); IMMATURE GRAN ABSOLUTE AUTO 0.02 K/mm3 (0.00-0.10); IMMATURE GRAN PERCENT AUTO 0 % (0-1); LYMPHOCYTES ABSOLUTE AUTO 2.12 K/mm3 (0.84-5.20); LYMPHOCYTES PERCENT AUTO 24 % (21-46); MONOCYTES ABSOLUTE AUTO 0.87 K/mm3 (0.16-1.47); MONOCYTES PERCENT AUTO 10 % (4-13); Mean Corpuscular HGB 27.9 pg (26.0-34.0); Mean Corpuscular Volume 87 fL (80-100); Mean Platelet Volume 10.6 fL (9.1-12.4); NEUTROPHILS ABSOLUTE AUTO 5.68 K/mm3 (1.96-9.15); NEUTROPHILS PERCENT AUTO 64 % (41-73); Platelet Count 319 K/mm3 (150-400); RDW Coefficient Variation 13.1 % (11.7-14.2); RDW Standard Deviation 41.7 fL (35.1-46.3); Red Blood Cell Count 5.31 M/mm3 (3.80-5.20); White Blood Cell Count 8.93 K/mm3 (4.00-11.30)
[2021-03-30] MEDS ORDERED: LORA10ER PO (21:55)
[2021-03-30] MEDS ORDERED: FAMO10 PO (22:04)
[2021-03-30 22:09] LABS: Alanine Aminotransfer (ALT/SGP 24 U/L (12-78); Albumin, Blood 3.8 g/dL (3.4-5.0); Alk Phos 96 U/L (50-136); Anion Gap 4 mmol/L (6-16); Aspartate Aminotrans (AST/SGOT 17 U/L (12-37); Bilirubin, Total 0.1 mg/dL (0.1-1.0); Blood Urea Nitrogen 12 mg/dL (8-24); Bun/Creatinine Ratio 16.5 (12.0-20.0); CO2, Blood 32 mmol/L (21-32); Calcium, Blood 9.5 mg/dL (8.5-10.1); Chloride, Blood 104 mmol/L (98-108); Creatinine, Blood 0.73 mg/dL (0.40-1.00); Glomerular Filtration Rate >60 (60-); Glucose, Blood 92 mg/dL (70-99); Potassium, Blood 4.3 mmol/L (3.5-5.5); Sodium, Blood 140 mmol/L (136-145); Total Protein, Blood 7.8 g/dL (6.4-8.2); Troponin I <0.015 ng/mL (0.000-0.040)
[2021-03-30 22:11] LABS: PCO2 Arterial 52.5 mmHg (35-45); PO2 Arterial 71.8 mmHg (80-100); pH Blood Arterial 7.37 (7.35-7.45)
[2021-03-30 23:48] LABS: SARS-Cov-2 (COVID-19) PCR, MMC NEGATIVE (NEGATIVE)
[2021-03-31 05:31] LABS: BASOPHILS ABSOLUTE AUTO 0.02 K/mm3 (0.00-0.23); BASOPHILS PERCENT AUTO 0 % (0-2); EOSINOPHILS PERCENT AUTO 0 % (0-6); Hemoglobin 12.9 g/dL (11.5-16.0); IMMATURE GRAN ABSOLUTE AUTO 0.03 K/mm3 (0.00-0.10); IMMATURE GRAN PERCENT AUTO 0 % (0-1); LYMPHOCYTES ABSOLUTE AUTO 0.33 K/mm3 (0.84-5.20); LYMPHOCYTES PERCENT AUTO 4 % (21-46); MONOCYTES ABSOLUTE AUTO 0.05 K/mm3 (0.16-1.47); MONOCYTES PERCENT AUTO 1 % (4-13); Mean Corpuscular HGB 27.6 pg (26.0-34.0); Mean Corpuscular HGB Conc 31.5 g/dL (31.5-36.5); Mean Corpuscular Volume 88 fL (80-100); Mean Platelet Volume 10.4 fL (9.1-12.4); NEUTROPHILS ABSOLUTE AUTO 7.54 K/mm3 (1.96-9.15); NEUTROPHILS PERCENT AUTO 95 % (41-73); Platelet Count 239 K/mm3 (150-400); RDW Coefficient Variation 13.1 % (11.7-14.2); RDW Standard Deviation 42.5 fL (35.1-46.3); Red Blood Cell Count 4.67 M/mm3 (3.80-5.20); White Blood Cell Count 7.97 K/mm3 (4.00-11.30)
[2021-03-31 06:14] LABS: Alanine Aminotransfer (ALT/SGP 23 U/L (12-78); Albumin, Blood 3.2 g/dL (3.4-5.0); Albumin/Globulin Ratio 0.9 (0.8-1.8); Alk Phos 81 U/L (50-136); Anion Gap 8 mmol/L (6-16); Aspartate Aminotrans (AST/SGOT 14 U/L (12-37); Bilirubin, Total <0.1 mg/dL (0.1-1.0); Blood Urea Nitrogen 10 mg/dL (8-24); Bun/Creatinine Ratio 16.8 (12.0-20.0); CO2, Blood 24 mmol/L (21-32); Calcium, Blood 8.1 mg/dL (8.5-10.1); Chloride, Blood 108 mmol/L (98-108); Globulin, Blood 3.5 g/dL (2.2-4.0); Glomerular Filtration Rate >60 (60-); Glucose, Blood 165 mg/dL (70-99); Potassium, Blood 3.9 mmol/L (3.5-5.5); Sodium, Blood 140 mmol/L (136-145); Total Protein, Blood 6.7 g/dL (6.4-8.2)
[2021-03-31] MEDS ORDERED: CALCIUM CARBONATE 600 MG PO (13:14)
[2021-03-31] MEDS ORDERED: OMEP20ER PO (13:15)
--- NOTE | 2021-03-31 16:19 | NUR ---
PT ADMITTED FROM ER THIS AFTERNOON. SHE IS ALERT AND ORIENTED, NO DISTRESS REPORTED OR NOTED. PT COPD , ON PULSE OX, AND MAINTAINING 02 LEVELS BETWEEN 89-92. PT DESATS QUICKLY WHEN SHE STARTS TO LAUGH OR COUGH, O2 ENCOURAGED. PT HAS NO BREAKDOWN TO SKIN AND IS ABLE TO AMBULATE TO RESTROOM. CALL LIGHT WITHIN REACH.
--- NOTE | 2021-04-01 04:43 | NUR ---
SUBSTITUTE CROSSING GUARD SUMMARY NO ACUTE CHANGES THIS SHIFT. PT AAOX4 AND INDEPENDENT IN ROOM. PT HAS BEEN ON 1L O2 VIA NC TONIGHT W/ O2 SATS AROUND 92%. OBTAINED SPUTUM SAMPLE FOR CULTURE HOWEVER DAIRY TECHNICIAN SAID NEW ORDER NEEDED TO BE REPLACED DUE TO SAMPLE NOT BEING ADEQUATE. SPUTUM CULTURE STILL PENDING COLLECTION PT HAS NOT HAD MUCH SPUTUM PRODUCTION. LUNGS WHEEZY BUT PT REPORTS SHE FEELS IMPROVED. VSS, WILL CONTINUE TO MONITOR.
--- NOTE | 2021-04-01 18:01 | NUR ---
SHIFT SUMMARY: NO ACUTE EVENTS. ON ROOM AIR DURING THE DAY, CONTINUOUS OXIMETRY SHOWS O2 SAT 88-92%. 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 NO EVENTS ON TELEMETRY, SR 60'S AT REST. GETTING UP TO BR AND IN ROOM INDEPENDENTLY. LBM 03/29; MAY NEED BOWEL MEDS TOMORROW. UNABLE TO GET SPUTUM SPECIMEN. DENIED PAIN. GOOD APPETITE. IS HOPING TO GO HOME TOMORROW.
--- NOTE | 2021-04-02 04:47 | NUR ---
CRANBERRY BOG SUPERVISOR SUMMARY NO ACUTE CHANGES THIS SHIFT. PT AAOX4 AND INDEPENDENT IN ROOM. HAS BEEN ON RA THROUGH THE NIGHT WITH SOME MINIMAL EXPIRATORY WHEEZING NOTED. PT DOES DESAT TO MID TO HIGH 80'S ON OCCASION WITH AMBULATION. PT HOPING TO GO HOME LATER TODAY. VSS, WILL CONTINUE TO MONITOR.
[2021-04-02] MEDS ORDERED: Calcium Carbon500 MG PO (12:35)
[2021-04-02] MEDS ORDERED: Tessalon200 MG PO (12:37)
[2021-04-02] MEDS ORDERED: CEFD300 PO (12:37)
[2021-04-02] MEDS ORDERED: PRED20 PO (12:38)
[2021-04-02] MEDS ORDERED: AZIT500 PO (12:38)
[2021-04-02] MEDS ORDERED: IPRAT-ALBUT 0.5-3 ML INH (12:40)
--- NOTE | 2021-04-02 14:18 | NUR ---
PATIENT DISCHARGED TO HOME ACCOMPANIED BY FRIEND. IV SALINE LOCK REMOVED WITHOUT INCIDENT. VERBLAIZED UNDERSTANDING OF D/C INSTRUCTIONS, NEW MEDICATIONS. DISCUSSED POSSIBLE SIDE EFFECTS OF NEW MEDICATIONS. OFF UNIT VIA W/C AT 1325. NO BELONGINGS LEFT BEHIND IN ROOM.
== END 2021-04-02 13:17 | disposition home or self-care (01) | DRG 191 ==
LOC: ER 21:26 → ERHOLD 03-31 02:49 → MEDS 03-31 12:52
PROVIDERS: Student in an Organized Health Care Education/Training Program; ADMIT Internal Medicine
DX: J44.1 Chronic obstructive pulmonary disease with (acute) exacerbation (principal); J96.11 Chronic respiratory failure with hypoxia; Z20.822 Contact with and (suspected) exposure to COVID-19; E11.9 Type 2 diabetes mellitus without complications; K21.9 Gastro-esophageal reflux disease without esophagitis; E78.5 Hyperlipidemia, unspecified; R32 Unspecified urinary incontinence; I25.10 Atherosclerotic heart disease of native coronary artery without angina pectoris; G47.33 Obstructive sleep apnea (adult) (pediatric); N32.81 Overactive bladder; Z98.51 Tubal ligation status; Z95.5 Presence of coronary angioplasty implant and graft; Z98.890 Other specified postprocedural states; Z87.891 Personal history of nicotine dependence; I25.2 Old myocardial infarction; Z88.8 Allergy status to other drugs, medicaments and biological substances; Z91.018 Allergy to other foods; Z79.82 Long term (current) use of aspirin; Z79.84 Long term (current) use of oral hypoglycemic drugs; Z79.899 Other long term (current) drug therapy; Z99.81 Dependence on supplemental oxygen
CPT/HCPCS: 36415; 36600; 71045; 80053; 82330; 82803; 82947; 83605; 83735; 83880; 84484; 85025; 93005; 93010; 94640; 94644; 94645; 94664; 94760; 94762; 96365; 96366; 96367; 96372; 96375; 96376; 99285-25; A9270; J0456; J0696; J1650; J1956; J2930; J3475; J7030; J7050; U0004

== ENCOUNTER 2021-08-15 00:39 | Inpatient (IN) | payer OTHER ==
[~2021-08-15] VITALS: Ht 162.6 cm; Wt 75.6 kg
[~2021-08-15 00:39] MED LIST changes: +AZIT500 PO; +CALCIUM CARBONATE 600 MG PO; +CEFD300 PO; +Calcium Carbon500 MG PO; +FAMO10 PO; +IPRAT-ALBUT 0.5-3 ML INH; +LORA10ER PO; +OMEP20ER PO; +Tessalon200 MG PO
[2021-08-15 01:00] LABS: BASOPHILS ABSOLUTE AUTO 0.04 K/mm3 (0.00-0.23); BASOPHILS PERCENT AUTO 0 % (0-2); EOSINOPHILS ABSOLUTE AUTO 0.07 K/mm3 (0.00-0.68); EOSINOPHILS PERCENT AUTO 1 % (0-6); Hematocrit 44.9 % (33.0-51.0); Hemoglobin 13.8 g/dL (11.5-16.0); IMMATURE GRAN ABSOLUTE AUTO 0.03 K/mm3 (0.00-0.10); IMMATURE GRAN PERCENT AUTO 0 % (0-1); LYMPHOCYTES ABSOLUTE AUTO 3.82 K/mm3 (0.84-5.20); LYMPHOCYTES PERCENT AUTO 38 % (21-46); MONOCYTES ABSOLUTE AUTO 0.83 K/mm3 (0.16-1.47); MONOCYTES PERCENT AUTO 8 % (4-13); Mean Corpuscular HGB 27.4 pg (26.0-34.0); Mean Corpuscular HGB Conc 30.7 g/dL (31.5-36.5); Mean Corpuscular Volume 89 fL (80-100); Mean Platelet Volume 10.7 fL (9.1-12.4); NEUTROPHILS ABSOLUTE AUTO 5.15 K/mm3 (1.96-9.15); NEUTROPHILS PERCENT AUTO 52 % (41-73); Platelet Count 253 K/mm3 (150-400); RDW Coefficient Variation 14.6 % (11.7-14.2); RDW Standard Deviation 47.4 fL (35.1-46.3); Red Blood Cell Count 5.04 M/mm3 (3.80-5.20); White Blood Cell Count 9.94 K/mm3 (4.00-11.30)
[2021-08-15 01:35] LABS: Alanine Aminotransfer (ALT/SGP 32 U/L (12-78); Albumin, Blood 3.4 g/dL (3.4-5.0); Albumin/Globulin Ratio 0.9 (0.8-1.8); Alk Phos 98 U/L (50-136); Anion Gap 7 mmol/L (6-16); Aspartate Aminotrans (AST/SGOT 24 U/L (12-37); Bilirubin, Total 0.2 mg/dL (0.1-1.0); Blood Urea Nitrogen 13 mg/dL (8-24); Bun/Creatinine Ratio 21.9 (12.0-20.0); CO2, Blood 25 mmol/L (21-32); Calcium, Blood 8.8 mg/dL (8.5-10.1); Chloride, Blood 107 mmol/L (98-108); Creatinine, Blood 0.59 mg/dL (0.40-1.00); Globulin, Blood 3.6 g/dL (2.2-4.0); Glomerular Filtration Rate >60 (60-); Glucose, Blood 150 mg/dL (70-99); Potassium, Blood 4.5 mmol/L (3.5-5.5); Sodium, Blood 139 mmol/L (136-145); Troponin I 0.047 ng/mL (0.000-0.040)
[2021-08-15 01:38] LABS: Influenza A, PCR NEGATIVE (NEGATIVE); Influenza B, PCR NEGATIVE (NEGATIVE); Resp Syncytial Virus, PCR NEGATIVE (NEGATIVE); SARS-Cov-2 (COVID-19) PCR, MMC NEGATIVE (NEGATIVE)
--- NOTE | 2021-08-15 11:53 | NUR ---
REPORT FROM ER NURSE RECIEVED AT 1148 VIA TELEPHONE.
--- NOTE | 2021-08-15 12:50 | NUR ---
TRANSFER UPDATE PT ARRIVE TO UNIT AT 1205 VIA GURNEY. PT WAS ABLE TO TRANSFER SELF FROM GURNEY TO BED WITH MINIMAL ASSISTANCE. PT ARRIVED ON 1L NC. PT BELONGINGS IN BAGS AND ARRIVED WITH PT.
--- NOTE | 2021-08-15 18:50 | NUR ---
SHIFT SUMMARY PT A/O x4 AND COOPERATIVE OF CARE. VSS SINCE ARRIVAL TO UNIT WITH O2 SATS >93% ON 1L NC. PT WAS ABLE TO TRANSFER SELF TO AND FROM BED WITH LITTLE TO NO ASSISTANCE. PT O2 SATS DROP INTO THE HIGH 80'S IF PT IS TALKING FOR PERIOD OF TIME OR WHEN LAUGHING THAT CAUSES PT TO HAVE A COUGHONG FIT. PT WAS SEEN BY DIRECTOR COMPLIANCE, NO PROCEDURES WERE PLANNED, FOOD TRAY ORDERED AND DELIVERED.
[2021-08-16 04:05] LABS: BASOPHILS ABSOLUTE AUTO 0.02 K/mm3 (0.00-0.23); BASOPHILS PERCENT AUTO 0 % (0-2); EOSINOPHILS PERCENT AUTO 0 % (0-6); Hematocrit 40.6 % (33.0-51.0); IMMATURE GRAN ABSOLUTE AUTO 0.07 K/mm3 (0.00-0.10); IMMATURE GRAN PERCENT AUTO 0 % (0-1); LYMPHOCYTES ABSOLUTE AUTO 0.91 K/mm3 (0.84-5.20); LYMPHOCYTES PERCENT AUTO 6 % (21-46); MONOCYTES ABSOLUTE AUTO 0.48 K/mm3 (0.16-1.47); MONOCYTES PERCENT AUTO 3 % (4-13); Mean Corpuscular HGB 27.6 pg (26.0-34.0); Mean Corpuscular Volume 86 fL (80-100); Mean Platelet Volume 10.6 fL (9.1-12.4); NEUTROPHILS ABSOLUTE AUTO 14.92 K/mm3 (1.96-9.15); NEUTROPHILS PERCENT AUTO 91 % (41-73); Platelet Count 229 K/mm3 (150-400); RDW Coefficient Variation 14.8 % (11.7-14.2); Red Blood Cell Count 4.71 M/mm3 (3.80-5.20)
[2021-08-16 04:30] LABS: Alanine Aminotransfer (ALT/SGP 24 U/L (12-78); Albumin, Blood 3.2 g/dL (3.4-5.0); Alk Phos 82 U/L (50-136); Anion Gap 6 mmol/L (6-16); Aspartate Aminotrans (AST/SGOT 11 U/L (12-37); Bilirubin, Total 0.2 mg/dL (0.1-1.0); Blood Urea Nitrogen 16 mg/dL (8-24); Bun/Creatinine Ratio 28.7 (12.0-20.0); CO2, Blood 27 mmol/L (21-32); Calcium, Blood 8.7 mg/dL (8.5-10.1); Chloride, Blood 109 mmol/L (98-108); Creatinine, Blood 0.56 mg/dL (0.40-1.00); Globulin, Blood 3.3 g/dL (2.2-4.0); Glomerular Filtration Rate >60 (60-); Glucose, Blood 159 mg/dL (70-99); Potassium, Blood 4.3 mmol/L (3.5-5.5); Sodium, Blood 142 mmol/L (136-145); Total Protein, Blood 6.5 g/dL (6.4-8.2)
--- NOTE | 2021-08-16 05:32 | NUR ---
SHIFT SUMMARY ASSUMED CARE OF PT AT 1900. PT IS A/OX4. HEART SOUNDS REGULAR, LUNG SOUNDS HAVE WHEEZES, PT REMAINED ON 1L NC T/O THE NIGHT. PT HAS A DRY NONPRODUCTIVE COUGH, MEDICATED PER EMAR. PT IS INDEPENDENT TO BATHROOM. PT TOOK A SHOWER THIS EVENING. DURING THE NIGHT, PT IV INFILTRATED AND MULTIPLE ATTEMPTS WHERE MADE WITH THE ULTRA SOUNDS TO START ANOTHER ONE. HOSPITALIST NOTIFIED AND ASKED IF THE FLUIDS COULD BE D/C DUE TO PT DRINKING WATER AND SWITCHED THE SOLUMEDRAOL TO PREDNISONE PO. CALL LIGHT IN REACH, BED IN LOWEST POSTION.
--- NOTE | 2021-08-16 10:11 | NUR ---
PATIENT ALERT AND ORIENTED X4. NEURO WNL. ON 1 L NASAL CANNULA SATING MID 90'S. HARSH COUGH, PRN TESSALON PEARLS. LUNGS SOUNDING WHEEZY THROUGHOUT, PRN BREATHING TREATMENTS. HOME O2 EVAL DONE THIS AM. TELE SHOWING SINUS WITH HR 70-80'S. DENIES CHEST PAIN/PRESSURE. VITAL SIGNS STABLE. ACHS BLOOD SUGARS. NO IV AT THIS TIME, DOCTORS AWARE. POSSIBLE DISCHARGE TODAY. SBA. CALL LIGHT IN REACH, EATING WELL. WILL CONTINUE TO MONITOR.
[2021-08-16] MEDS ORDERED: Acetaminophen325 M1 PO (10:24)
[2021-08-16] MEDS ORDERED: AZIT500 PO (10:26)
[2021-08-16] MEDS ORDERED: Tessalon200 MG PO (10:26)
[2021-08-16] MEDS ORDERED: DILT120ERA PO (10:27)
[2021-08-16] MEDS ORDERED: ONDA4ODT MM (10:28)
[2021-08-16] MEDS ORDERED: PRED20 PO (10:28)
[2021-08-16] MEDS ORDERED: CEFD300 PO (10:29)
--- NOTE | 2021-08-16 11:55 | NUR ---
DISCHARGE EDUCATION, MEDICATION LIST AND FOLLOW UP APPOINTMENTS REVIEWED WITH PT. PT VERBALIZES UNDERSTANDING AND EXPRESSES NO QUESTIONS OR CONCERNS. IV ALREADY REMOVED BY ANOTHER RN. PRESCRIPTIONS HAVE BEEN SENT TO PT'S PHARMACY OF CHOICE AND SHE VERBALIZES UNDERSTNANDING TO PICK THEM UP. ALL BELONGINGS SENT WITH PT. NO FURTHER DISCHARGE NEEDS IDENTIFIED AT THIS TIME. PT DISCHARGED INTO THE CARE OF HER SON.
== END 2021-08-16 11:55 | disposition home or self-care (01) | DRG 189 ==
LOC: ER 00:39 → ERHOLD 03:08 → PCU 12:06
PROVIDERS: Emergency Medicine; Family Medicine; ADMIT Internal Medicine
PROC: 5A09357 Assistance with Respiratory Ventilation, Less than 24 Consecutive Hours, Continuous Positive Airway Pressure (ICD-10-PCS; principal; 2021-08-15)
PROC: 3E02340 Introduction of Influenza Vaccine into Muscle, Percutaneous Approach (ICD-10-PCS; 2021-08-15)
DX: J96.21 Acute and chronic respiratory failure with hypoxia (principal); I21.A1 Myocardial infarction type 2; J44.1 Chronic obstructive pulmonary disease with (acute) exacerbation; Z20.822 Contact with and (suspected) exposure to COVID-19; J96.22 Acute and chronic respiratory failure with hypercapnia; E78.5 Hyperlipidemia, unspecified; G47.33 Obstructive sleep apnea (adult) (pediatric); E11.9 Type 2 diabetes mellitus without complications; Z23 Encounter for immunization; I10 Essential (primary) hypertension; K21.9 Gastro-esophageal reflux disease without esophagitis; I25.10 Atherosclerotic heart disease of native coronary artery without angina pectoris; I25.2 Old myocardial infarction; M54.9 Dorsalgia, unspecified; G89.29 Other chronic pain; Z88.6 Allergy status to analgesic agent; Z91.018 Allergy to other foods; Z79.82 Long term (current) use of aspirin; Z87.891 Personal history of nicotine dependence; Z79.899 Other long term (current) drug therapy; Z79.4 Long term (current) use of insulin; Z98.51 Tubal ligation status; Z99.81 Dependence on supplemental oxygen; Z95.5 Presence of coronary angioplasty implant and graft
CPT/HCPCS: 0241U; 36415; 70450; 71045; 80053; 82947; 83880; 84145; 84484; 85025; 90686; 93005; 93010; 93308; 93321; 94640; 94644; 94660; 94664; 94760; 94761; 96374; 99285-25; A9270; G0008; J1650; J2930; J7030; J7512

== ENCOUNTER → 2022-02-11 | Outpatient (CLI) | payer OTHER ==
[~2022-02-11] MED LIST changes: +Acetaminophen325 M1 PO; +CYCL10 PO; +DILT120ERA PO; +METOPROLOL TART25 MG PO; +Norco 5-325 Ta1 EACH PO; +ONDA4ODT MM; +TOPI50 PO
[2022-02-11 12:26] LABS: Microalb/Creat Ratio UR, Rand Unable to Calculate mg/g (0.000-30.000); Microalbumin, Random Urine <5.000 mg/L (0.000-20.000)
== END | disposition home or self-care (01) ==
LOC: LAB 10:26 → LAB SHORT 10:26
PROVIDERS: Physician Assistant
DX: E11.9 Type 2 diabetes mellitus without complications (principal)
CPT/HCPCS: 82043; 82570

== ENCOUNTER → 2022-11-05 | Outpatient (CLI) | payer OTHER ==
[2022-11-06 17:04] LABS: Creatinine, Urine Random 44.7 mg/dL (27.00-270.00)
[2022-11-06 17:06] LABS: Microalb/Creat Ratio UR, Rand 11.991 mg/g (0.000-30.000); Microalbumin, Random Urine 5.36 mg/L (0.000-20.000)
== END | disposition home or self-care (01) ==
LOC: LAB SHORT 11:30
PROVIDERS: Physician Assistant
DX: E11.9 Type 2 diabetes mellitus without complications (principal)
CPT/HCPCS: 82043; 82570

== ENCOUNTER 2023-09-02 11:49 | Emergency (ER) | payer MEDICARE, OTHER ==
[~2023-09-02] VITALS: Ht 157.5 cm; Wt 59.0 kg
[2023-09-02 12:04] VITALS: BP 145/98
[2023-09-02 13:11] LABS: BASOPHILS ABSOLUTE AUTO 0.04 K/mm3 (0.00-0.23); BASOPHILS PERCENT AUTO 1 % (0-2); EOSINOPHILS ABSOLUTE AUTO 0.02 K/mm3 (0.00-0.68); EOSINOPHILS PERCENT AUTO 0 % (0-6); Hematocrit 45.1 % (33.0-51.0); Hemoglobin 14.1 g/dL (11.5-16.0); IMMATURE GRAN ABSOLUTE AUTO 0.03 K/mm3 (0.00-0.10); IMMATURE GRAN PERCENT AUTO 0 % (0-1); LYMPHOCYTES ABSOLUTE AUTO 2.17 K/mm3 (0.84-5.20); LYMPHOCYTES PERCENT AUTO 26 % (21-46); MONOCYTES ABSOLUTE AUTO 0.41 K/mm3 (0.16-1.47); MONOCYTES PERCENT AUTO 5 % (4-13); Mean Corpuscular HGB 28.4 pg (26.0-34.0); Mean Corpuscular HGB Conc 31.3 g/dL (31.5-36.5); Mean Corpuscular Volume 91 fL (80-100); Mean Platelet Volume 11.5 fL (9.1-12.4); NEUTROPHILS ABSOLUTE AUTO 5.85 K/mm3 (1.96-9.15); NEUTROPHILS PERCENT AUTO 69 % (41-73); Platelet Count 277 K/mm3 (150-400); RDW Standard Deviation 50.4 fL (35.1-46.3); Red Blood Cell Count 4.97 M/mm3 (3.80-5.20); White Blood Cell Count 8.52 K/mm3 (4.00-11.30)
[2023-09-02 13:38] LABS: C-REACTIVE PROTEIN, EXT RANGE <0.290 mg/dL (0.000-0.300)
[2023-09-02 13:39] LABS: Alanine Aminotransfer (ALT/SGP 30 U/L (12-78); Albumin, Blood 3.9 g/dL (3.4-5.0); Albumin/Globulin Ratio 1.1 (0.8-1.8); Alk Phos 111 U/L (50-136); Anion Gap 6 mmol/L (6-16); Aspartate Aminotrans (AST/SGOT 22 U/L (12-37); Bilirubin, Total 0.2 mg/dL (0.1-1.0); Blood Urea Nitrogen 7 mg/dL (8-24); Bun/Creatinine Ratio 11.4 (12.0-20.0); CO2, Blood 23 mmol/L (21-32); Calcium, Blood 9.2 mg/dL (8.5-10.1); Chloride, Blood 114 mmol/L (98-108); Creatinine, Blood 0.61 mg/dL (0.40-1.00); Globulin, Blood 3.4 g/dL (2.2-4.0); Glomerular Filtration Rate 99 (60-); Glucose, Blood 88 mg/dL (70-99); Potassium, Blood 3.6 mmol/L (3.5-5.5); Sodium, Blood 143 mmol/L (136-145); Total Protein, Blood 7.3 g/dL (6.4-8.2)
== END 2023-09-02 15:10 | disposition home or self-care (01) ==
LOC: ER 11:49
PROVIDERS: Physician Assistant
DX: M79.89 Other specified soft tissue disorders (principal); Z87.891 Personal history of nicotine dependence; E11.9 Type 2 diabetes mellitus without complications; J44.9 Chronic obstructive pulmonary disease, unspecified; Z79.899 Other long term (current) drug therapy; Z79.82 Long term (current) use of aspirin; Z79.51 Long term (current) use of inhaled steroids; Z79.2 Long term (current) use of antibiotics; Z88.6 Allergy status to analgesic agent; Z91.018 Allergy to other foods
CPT/HCPCS: 73201; 80053; 85025; 86140; 99284-25; Q9967

== ENCOUNTER 2025-01-09 06:58 | Day surgery (SDC) | payer MEDICARE, OTHER ==
[~2025-01-09] VITALS: Ht 157.5 cm; Wt 63.6 kg
[2025-01-09] VITALS (16 sets, daily range): BP systolic 55–184; BP diastolic 27–118
[~2025-01-09 06:58] MED LIST changes: +TOPI25 PO
[2025-01-09] MEDS ORDERED: Verapamil HCL 2.5 MG/ML 2ML Injection ONE (07:12)
[2025-01-09] MEDS ORDERED: NS 250 ML IV ONE (07:12)
[2025-01-09] MEDS ORDERED: NS 1,000 ML IV ONE ×4 (07:13→10:35)
[2025-01-09] MEDS ORDERED: Nitroglycerin 2 MG/20 ML BTL ONE (07:13)
[2025-01-09] MEDS ORDERED: Heparin Sodium 1000 Units/ML 10ML MDV ONE ×2 (07:13→09:20)
[2025-01-09] MEDS ORDERED: ANORO ELLIPTA1 EAC1 INH (07:24)
[2025-01-09] MEDS ORDERED: MYRBETRIQ50 MG PO (07:25)
[2025-01-09] MEDS ORDERED: NUCALA100 MG/11 SC (07:31)
[2025-01-09] MEDS ORDERED: OMEP20ER PO (07:32)
[2025-01-09] MEDS ORDERED: FentaNYL Citrate 50 MCG/ML 2 ML Injection ONE (07:46)
[2025-01-09] MEDS ORDERED: Midazolam HCl 1MG / ML 2ML Vial ONE (07:46)
[2025-01-09] MEDS ORDERED: Ticagrelor 90 MG TABLET ONE (09:20)
[2025-01-09] MEDS ORDERED: Aspirin 325 MG Tab ONE (10:08)
[2025-01-09] MEDS ORDERED: Nitroglycerin 0.4 MG SUBL ONE (10:08)
--- NOTE | 2025-01-09 10:10 | NUR ---
PT C/O 9/10 CHEST PAIN POST PCI. PT TRANSFERED TO RECOVERY VIA RECLINER. PT CONTINUED TO C/O 9/10 CHEST PAIN. PT'S SKIN PALE AND COOL /C ST EVEVATION ON THE MONITOR. MD NOTIFIED. NS BOLUS STARTED AND NEOSYNPHRINE 200MCG IVP GIVEN FOR HYPOTENSION. PT MOVED FROM CHAIR TO A GURNEY. SHORTLY AFTER MOVING PT TO GURNEY PT BECAME NONRESPONSIVE /S A PULSE. CODE CALLED. CPR STARTED.
[2025-01-09] MEDS ORDERED: Phenylephrine HCl 100 MCG/ML-NS 10MLSYR (1MG/10ML) ONE (10:11)
[2025-01-09] MEDS ORDERED: Vasopressin 20 UNITS in NS 100 ML IV SCH (10:40)
--- NOTE | 2025-01-09 12:30 | NUR ---
"Spiritual Care | Code Blue | EOL Pt. coded in the [facility] recovery. This cafeteria worker sat with Pts. son in the waiting area. Eventually Nurse Kathy came and brought us to the room where the code team was doing comprassions and attempting to revive Pt. After Pt. passed this cafeteria worker went with the son to a room. While the Son declared that lu was not a part of the family tradition, he did display evidence of welcoming my presence. During the long moments of silence this cafeteria worker prayed silently for both the Pt. and the family. While waiting for the family, Pts. son Edy chose [facility] for the Pts. cremation services. Other family arrived. Pts. brother displayed evidence of both grief and anger. This cafeteria worker did what he could to get the family in with the Pt. Listened with emapthy, until the brother attempted to take off the Pts. intubation tube. This cafeteria worker intervened and calmly reminded the family the tube had to remain for the medical stenographer. Brother left because of his anxiety and displays of anger. Friend Jayshree escorted him out of the building. Pts. son Edy and another friend stayed at bedside for some time before departing. The took Pts. belongings as they left. Informed the Line Prep Cook of home choice."
[2025-01-09] MEDS ORDERED: Calcium Chloride 10% 10 ML SYR IV ONE (14:51)
[2025-01-09] MEDS ORDERED: Rocuronium Bromide 10 MG/ML 5ML Injection IV ONE (14:51)
[2025-01-09] MEDS ORDERED: Sodium Bicarb 8.4% 50 mEq Syringe IV ONE (14:51)
[2025-01-09] MEDS ORDERED: Ketamine HCl 100 MG / ML 5ML Vial IV ONE (14:51)
[2025-01-09] MEDS ORDERED: DOPamine 400 MG/Dextrose 250 ML Bag IV ONE (14:51)
[2025-01-09] MEDS ORDERED: Amiodarone HCl 50 MG / ML 3 ML Amp IV ONE (14:51)
[2025-01-09] MEDS ORDERED: Atropine Sulfate 0.1 MG/ML 10ML SYR IV ONE (14:51)
[2025-01-09] MEDS ORDERED: EPINEPhrine HCl 0.1 MG/ML 10ML SYR IV ONE (14:51)
[2025-01-09] MEDS ORDERED: Magnesium Sulfate 500 MG / ML 2ML Vial IV ONE (14:51)
== END 2025-01-09 11:01 ==
LOC: MHTC 06:58
DX: I25.9 Chronic ischemic heart disease, unspecified (principal); I25.10 Atherosclerotic heart disease of native coronary artery without angina pectoris; I25.2 Old myocardial infarction; E11.9 Type 2 diabetes mellitus without complications; J44.9 Chronic obstructive pulmonary disease, unspecified; I10 Essential (primary) hypertension; E78.5 Hyperlipidemia, unspecified; Z95.5 Presence of coronary angioplasty implant and graft; Z79.82 Long term (current) use of aspirin
CPT/HCPCS: 31500; 76937; 85347; 92950; 92978; 93005; 93010; 93458; 93571; 99152; 99153; A9270; C1725; C1753; C1769; C1874; C1887; C1894; C9600; J0171; J0282; J0461; J1265; J1644; J2250; J2371; J3010; J3475; J7030; J7050; J7060; Q9967